=== PATIENT | male | born 1960 | race Caucasian/White ===

== ENCOUNTER 2020-01-18 18:35 | Emergency (ER) | payer OTHER, BC ==
[2020-01-18 19:04] VITALS: BP 139/85; PULSE 78
[2020-01-18] MEDS ORDERED: Sodium Chloride 0.9% 10 ML Syringe FLUSH PRN (19:15)
[2020-01-18] MEDS ORDERED: Ketorolac 60 MG/2 ML SDV IM ONE (19:41)
--- NOTE | 2020-01-18 19:56 | EDM.PDOC ---
ED HPI GENERAL MEDICAL PROBLEM - General Chief Complaint: Chest Pain Stated Complaint: CHEST PAIN Time Seen by Provider: 01/18/20 19:15 Source of Information: Reports: Patient History Limitations: Reports: No Limitations - History of Present Illness INITIAL COMMENTS - FREE TEXT/NARRATIVE: was at work when he was lifting a plastic when he felt sudden onset of pain in the right side of the chest in the intercostal region , no radiation , it initially stopped but then it re-occured and this time pain was more severe. 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 01/18/20 [Rx] Past Medical History HEENT History: Reports: Other (See Below) Other HEENT History: hx tinnitis Respiratory History: Reports: Asthma Musculoskeletal History: Reports: Fracture Other Musculoskeletal History: hx fx toes, fingers, bilat clavicles, bilat shou lder blades, several ribs Endocrine/Metabolic History: Reports: Diabetes, Type II, Obesity/BMI 30+ - Infectious Disease History Infectious Disease History: Reports: Measles, Mumps - Past Surgical History Neurological Surgical History: Reports: C-Spine, Other (See Below) Other Neurological Surgeries/Procedures: cervical fusion Musculoskeletal Surgical History: Reports: Arthroscopic Knee, Shoulder Surgery, Other (See Below) Other Musculoskeletal Surgeries/Procedures:: L shoulder, bilat knees scoped, Social & Family History - Family History Family Medical History: Noncontributory - Tobacco Use Tobacco Use Status *Q: Current Some Day Tobacco User Years of Tobacco use: 42 Packs/Tins Daily: 0.1 - Caffeine Use Caffeine Use: Reports: Soda - Recreational Drug Use Recreational Drug Use: No ED ROS GENERAL - Review of Systems Review Of Systems: See Below Constitutional: Reports: No Symptoms. Denies: Fever, Chills, Malaise, Weakness, Decreased Appetite HEENT: Reports: No Symptoms Respiratory: Reports: No Symptoms Cardiovascular: Reports: Chest Pain. Denies: Claudication, Dyspnea on Exertion, Orthopnea, PND Endocrine: Reports: No Symptoms GI/Abdominal: Reports: No Symptoms : Reports: No Symptoms Musculoskeletal: Reports: No Symptoms Skin: Reports: No Symptoms Neurological: Reports: No Symptoms Psychiatric: Reports: No Symptoms Hematologic/Lymphatic: Reports: No Symptoms Immunologic: Reports: No Symptoms ED EXAM, GENERAL - Physical Exam Exam: See Below Exam Limited By: No Limitations General Appearance: Alert, WD/WN, No Apparent Distress Eye Exam: Bilateral Eye: EOMI Ears: Normal External Exam, Normal Canal, Hearing Grossly Normal Nose: Normal Inspection, Normal Mucosa Throat/Mouth: Normal Inspection Head: Atraumatic, Normocephalic Neck: Supple, Non-Tender Respiratory/Chest: No Respiratory Distress, Lungs Clear, Other (reproducible chest wall pain noted in the 4th intercostal space in the prasternal area ) Cardiovascular: Regular Rate, Rhythm, No Edema, No JVD, No Murmur Peripheral Pulses: 4+: Carotid (L) GI/Abdominal: Soft, Non-Tender (Male) Exam: Normal Inspection, Normal Prostate Back Exam: Normal Inspection, Full Range of Motion. No: CVA Tenderness (R) Extremities: Normal Inspection, Normal Range of Motion Neurological: Alert, Oriented, CN II-XII Intact Psychiatric: Normal Affect Skin Exam: Warm, Dry, Intact Lymphatic: No Adenopathy #1 Interpretation Rhythm: NSR [place]: Normal P-Wave: Present QRS: Normal ST-T: Normal Course - Vital Signs Last Recorded V/S: Last Vital Signs Temp 36.6 C 01/18/20 19:24 Pulse 78 01/18/20 18:50 Resp 18 01/18/20 18:50 BP 139/85 01/18/20 18:50 Pulse Ox 99 01/18/20 18:50 - Orders/Labs/Meds Orders: Active Orders 24 hr Category Date Time Status EKG Documentation Completion [RC] ASDIRECTED Care 01/18/20 18:53 Active Warming Measures [Cooling Warming Measures] [RC] Care 01/18/20 19:42 Active ASDIRECTED Chest 1V Frontal [CR] Stat Exams 01/18/20 18:52 Taken Sodium Chloride 0.9% [Saline Flush] Med 01/18/20 19:15 Active 10 ml FLUSH ASDIRECTED PRN Peripheral IV Insertion Adult [OM.PC] Routine Oth 01/18/20 19:15 Ordered EKG 12 Lead [EK] Routine Ther 01/18/20 18:52 Ordered Medication Orders Sodium Chloride (Saline Flush) 10 ml FLUSH ASDIRECTED PRN PRN Reason: Keep Vein Open Last Admin: 01/18/20 18:55 Dose: 10 ml Documented by: EAMON Labs: Laboratory Tests 01/18/20 01/18/20 01/18/20 Range/Units 18:42 18:42 18:42 WBC 8.3 (4.5-12.0) X10-3/uL RBC 5.17 (4.30-5.75) x10(6)uL Hgb 14.9 (13.5-17.8) g/dL Hct 43.5 (30.0-51.3) % MCV 84.2 (80-96) fL MCH 28.7 (27.7-33.6) pg MCHC 34.1 (32.2-35.4) g/dL RDW 12.4 (11.5-15.5) % Plt Count 251 (125-369) X10(3)uL MPV 8.2 (7.4-10.4) fL Neut % (Auto) 63.9 (46-82) % Lymph % (Auto) 27.1 (13-37) % Dunn % (Auto) 6.3 (4-12) % Eos % (Auto) 2 (1.0-5.0) % Baso % (Auto) 1 (0-2) % Neut # (Auto) 5.4 (1.6-8.3) # Lymph # (Auto) 2.2 (0.6-5.0) # Dunn # (Auto) 0.5 (0.0-1.3) # Eos # (Auto) 0.1 (0.0-0.8) # Baso # (Auto) 0.1 (0.0-0.2) # D-Dimer, Quantitative 0.41 (0.0-0.59) mg/LFEU Sodium 139 (135-145) mmol/L Potassium 3.9 (3.5-5.3) mmol/L Chloride 103 (100-110) mmol/L Carbon Dioxide 28 (21-32) mmol/L BUN 16 (7-18) mg/dL Creatinine 1.0 (0.70-1.30) mg/dL Est Cr Clr Drug Dosing 55.56 mL/min Estimated GFR (MDRD) > 60 (>60) BUN/Creatinine Ratio 16.0 (9-20) Glucose 133 H (80-116) mg/dL Calcium 8.6 (8.6-10.2) mg/dL Total Bilirubin 0.5 (0.1-1.3) mg/dL AST 21 (5-25) IU/L ALT 33 (12-36) U/L Alkaline Phosphatase 99 (56-112) IU/L Troponin I (4.0-60.3) pg/mL Total Protein 7.2 (6.0-8.0) g/dL Albumin 3.7 (3.2-4.6) g/dL Globulin 3.5 g/dL Albumin/Globulin Ratio 1.1 01/17/ Range/Units 18:42 WBC (4.5-12.0) X10-3/uL RBC (4.30-5.75) x10(6)uL Hgb (13.5-17.8) g/dL Hct (30.0-51.3) % MCV (80-96) fL MCH (27.7-33.6) pg MCHC (32.2-35.4) g/dL RDW (11.5-15.5) % Plt Count (125-369) X10(3)uL MPV (7.4-10.4) fL Neut % (Auto) (46-82) % Lymph % (Auto) (13-37) % Dunn % (Auto) (4-12) % Eos % (Auto) (1.0-5.0) % Baso % (Auto) (0-2) % Neut # (Auto) (1.6-8.3) # Lymph # (Auto) (0.6-5.0) # Dunn # (Auto) (0.0-1.3) # Eos # (Auto) (0.0-0.8) # Baso # (Auto) (0.0-0.2) # D-Dimer, Quantitative (0.0-0.59) mg/LFEU Sodium (135-145) mmol/L Potassium (3.5-5.3) mmol/L Chloride (100-110) mmol/L Carbon Dioxide (21-32) mmol/L BUN (7-18) mg/dL Creatinine (0.70-1.30) mg/dL Est Cr Clr Drug Dosing mL/min Estimated GFR (MDRD) (>60) BUN/Creatinine Ratio (9-20) Glucose (80-116) mg/dL Calcium (8.6-10.2) mg/dL Total Bilirubin (0.1-1.3) mg/dL AST (5-25) IU/L ALT (12-36) U/L Alkaline Phosphatase (56-112) IU/L Troponin I 4.4 (4.0-60.3) pg/mL Total Protein (6.0-8.0) g/dL Albumin (3.2-4.6) g/dL Globulin g/dL Albumin/Globulin Ratio Meds: Medications Generic Name Dose Route Start Last Admin Trade Name Freq PRN Reason Stop Dose Admin Sodium Chloride 10 ml 01/18/20 19:15 01/18/20 18:55 Saline Flush FLUSH 10 ml ASDIRECTED PRN Administration Keep Vein Open Discontinued Medications Generic Name Dose Route Start Last Admin Trade Name Freq PRN Reason Stop Dose Admin Ketorolac Tromethamine 60 mg 01/18/20 19:41 Toradol IM 01/18/20 19:42 ONETIME ONE Departure - Departure Time of Disposition: 20:10 Disposition: Home, Self-Care 01 Condition: Good Clinical Impression: Costochondral joint sprain, Costochondral chest pain Instructions: Nonspecific Chest Pain, Adult, [id number]-[id number], Chest Wall Pain, [id number] Referrals: PCP,None [Primary Care Provider] - Forms: ED Department Discharge, ED Return to Work/School Form Additional Instructions: 1) Warm compress to the affected area 3 times daily for 15-20 mins 2) OK to use aspirin as needed 3) Call ER wth any concerns Sepsis Event Note (ED) - Evaluation Sepsis Screening Result: No Definite Risk - Focused Exam Vital Signs: Vital Signs Temp Temp Pulse Resp BP Pulse Ox 01/18/20 19:24 36.6 C 01/18/20 18:50 36.2 C 78 18 139/85 99 - My Orders Last 24 Hours: My Active Orders 01/18/20 19:15 Sodium Chloride 0.9% [Saline Flush] 10 ml FLUSH ASDIRECTED PRN Peripheral IV Insertion Adult [OM.PC] Routine 01/18/20 19:42 Warming Measures [Cooling Warming Measures] [RC] ASDIRECTED - Assessment/Plan Last 24 Hours: My Active Orders 01/18/20 19:15 Sodium Chloride 0.9% [Saline Flush] 10 ml FLUSH ASDIRECTED PRN Peripheral IV Insertion Adult [OM.PC] Routine 01/18/20 19:42 Warming Measures [Cooling Warming Measures] [RC] ASDIRECTED
== END 2020-01-18 20:30 | disposition home or self-care (01) ==
LOC: FB.ED 18:35
DX: S23.41XA Sprain of ribs, initial encounter (principal); F17.210 Nicotine dependence, cigarettes, uncomplicated; J45.909 Unspecified asthma, uncomplicated; E11.9 Type 2 diabetes mellitus without complications; E66.9 Obesity, unspecified; Z68.42 Body mass index [BMI] 45.0-49.9, adult; Z88.8 Allergy status to other drugs, medicaments and biological substances; X50.9XXA Other and unspecified overexertion or strenuous movements or postures, initial encounter
CPT/HCPCS: 36415; 71045; 80053; 84484; 85025; 85379; 93005; 96372; 99285; J1885; 93010; 99283

== ENCOUNTER 2020-09-27 21:28 | Emergency (ER) | payer OTHER, BC ==
[2020-09-27 21:40] VITALS: BP 153/92; PULSE 0
--- NOTE | 2020-09-27 22:06 | EDM.PDOC ---
ED HPI GENERAL MEDICAL PROBLEM - General Chief Complaint: Upper Extremity Injury/Pain Stated Complaint: INJURY TO LEFT WRIST AT WORK Time Seen by Provider: 09/27/20 21:40 Source of Information: Reports: Patient History Limitations: Reports: No Limitations - History of Present Illness INITIAL COMMENTS - FREE TEXT/NARRATIVE: Patient presented to the ED because of left wrist pain. He heard a pop on his left wrist after pulling on something while at work. He c/o 6/10 pain and tingling of the fingers Treatments VISE HAND: Reports: Cold Therapy - Related Data Allergies Allergy/AdvReac Type Severity Reaction Status Date / Time metformin Allergy Nausea Verified 09/27/20 21:40 Home Meds: Home Meds Albuterol [Proventil HFA] 2 puff INH QID PRN 04/15/16 [History] Alogliptin Benzoate [Alogliptin] 25 mg PO DAILY 09/27/20 [History] Ibuprofen 800 mg PO Q8H PRN #30 tablet 09/27/20 [Rx] Past Medical History HEENT History: Reports: Other (See Below) Other HEENT History: hx tinnitis Respiratory History: Reports: Asthma Musculoskeletal History: Reports: Fracture Other Musculoskeletal History: hx fx toes, fingers, bilat clavicles, bilat shoulder blades, several ribs Endocrine/Metabolic History: Reports: Diabetes, Type II, Obesity/BMI 30+ - Infectious Disease History Infectious Disease History: Reports: Measles, Mumps - Past Surgical History Neurological Surgical History: Reports: C-Spine, Other (See Below) Other Neurological Surgeries/Procedures: cervical fusion Musculoskeletal Surgical History: Reports: Arthroscopic Knee, Shoulder Surgery, Other (See Below) Other Musculoskeletal Surgeries/Procedures:: L shoulder, bilat knees scoped, Social & Family History - Family History Family Medical History: No Pertinent Family History - Tobacco Use Tobacco Use Status *Q: Current Every Day Tobacco User Years of Tobacco use: 45 Packs/Tins Daily: 0.5 - Caffeine Use Caffeine Use: Reports: Soda - Recreational Drug Use Recreational Drug Use: No Review of Systems - Review of Systems Review Of Systems: See Below Constitutional: Reports: No Symptoms Eyes: Reports: No Symptoms Ears: Reports: No Symptoms Nose: Reports: No Symptoms Mouth/Throat: Reports: No Symptoms Respiratory: Reports: No Symptoms Cardiovascular: Reports: No Symptoms GI/Abdominal: Reports: No Symptoms Genitourinary: Reports: No Symptoms Musculoskeletal: Reports: No Symptoms Skin: Reports: No Symptoms Neurological: Reports: No Symptoms ED EXAM, GENERAL - Physical Exam Exam: See Below Exam Limited By: No Limitations General Appearance: Alert, No Apparent Distress Ears: Normal External Exam, Normal Canal Nose: Normal Inspection, Normal Mucosa, No Blood Throat/Mouth: Normal Inspection, Normal Lips, Normal Teeth Head: Atraumatic, Normocephalic Neck: Normal Inspection, Supple, Non-Tender, Full Range of Motion Respiratory/Chest: No Respiratory Distress, Lungs Clear, Normal Breath Sounds, No Accessory Muscle Use, Chest Non-Tender Cardiovascular: Normal Peripheral Pulses, Regular Rate, Rhythm, No Edema, No Gallop, No JVD, No Murmur, No Rub GI/Abdominal: Normal Bowel Sounds, Soft, Non-Tender, No Organomegaly, No Distention Back Exam: Normal Inspection, Full Range of Motion Extremities: Normal Inspection, Limited Range of Motion, Other (tenderness left wrist) Neurological: Alert, Oriented, CN II-XII Intact Course - Vital Signs Text/Narrative:: xray left wrist-see result ice pack refused pain meds Last Recorded V/S: Last Vital Signs Temp 36.6 C 09/27/20 21:35 Pulse 0 L 09/27/20 21:35 Resp 16 09/27/20 21:35 BP 153/92 H 09/27/20 21:35 Pulse Ox 97 09/27/20 21:35 - Orders/Labs/Meds Orders: Active Orders 24 hr Category Date Time Status Wrist Comp Min 3V Lt [CR] Stat Exams 09/27/20 21:49 Taken Departure - Departure Time of Disposition: 22:30 Disposition: Home, Self-Care 01 Condition: Good Clinical Impression: Left wrist sprain - Discharge Information Prescriptions: Ibuprofen 800 mg PO Q8H PRN #30 tablet PRN Reason: Pain Instructions: Wrist Sprain, Adult Forms: ED Department Discharge Additional Instructions: Please read discharge instructions on wrist sprain Apply ice,elevate Take ibuprofen 800 mg with tylenol 1000 mg every 8 hours as needed for pain Follow up as needed Sepsis Event Note (ED) - Evaluation Sepsis Screening Result: No Definite Risk - My Orders Last 24 Hours: My Active Orders 09/27/20 21:49 Wrist Comp Min 3V Lt [CR] Stat - Assessment/Plan Last 24 Hours: My Active Orders 09/27/20 21:49 Wrist Comp Min 3V Lt [CR] Stat
--- NOTE | 2020-09-28 12:09 | CR ---
INDICATION: Left wrist injury. Pain in wrist at work, digit 1 through 4. LEFT WRIST: Three views of the left wrist were obtained 09/28/20 - no comparisons. The volar fat pad is slightly deviated raising question of a minimal wrist joint effusion. No other bone or joint abnormality was suggested. If occult bony abnormality is suspected clinically, additional examination such as nuclear bone imaging or MRI, may be helpful. MTDD
== END 2020-09-27 22:35 | disposition home or self-care (01) ==
LOC: FB.ED 21:28
DX: S63.502A Unspecified sprain of left wrist, initial encounter (principal); E11.9 Type 2 diabetes mellitus without complications; E66.9 Obesity, unspecified; Z88.8 Allergy status to other drugs, medicaments and biological substances; Z72.0 Tobacco use; Z68.32 Body mass index [BMI] 32.0-32.9, adult; X50.9XXA Other and unspecified overexertion or strenuous movements or postures, initial encounter; Y99.0 Civilian activity done for income or pay
CPT/HCPCS: 73110-LT; 99000; 99283-25

== ENCOUNTER 2020-10-10 14:04 | Emergency (ER) | payer BC, OTHER ==
--- NOTE | 2020-10-10 14:59 | EDM.PDOC ---
ED HPI GENERAL MEDICAL PROBLEM - General Chief Complaint: Diabetic Complaint Stated Complaint: DIZZY Time Seen by Provider: 10/10/20 14:57 Source of Information: Reports: Patient History Limitations: Reports: No Limitations - History of Present Illness INITIAL COMMENTS - FREE TEXT/NARRATIVE: Scott complaints of high blood sugars. He is out of his oral hypoglycemic [facility]. He complains of mild dizziness. - Related Data Allergies Allergy/AdvReac Type Severity Reaction Status Date / Time metformin Allergy Nausea Verified 10/10/20 14:21 Home Meds: Home Meds Albuterol [Proventil HFA] 2 puff INH QID PRN 04/15/16 [History] Alogliptin Benzoate [Alogliptin] 25 mg PO DAILY 09/27/20 [History] Ibuprofen 800 mg PO Q8H PRN #30 tablet 09/27/20 [Rx] Alogliptin Benzoate [Alogliptin] 25 mg PO ACBREAKFAST #30 tablet 10/10/20 [Rx] Past Medical History HEENT History: Reports: Other (See Below) Other HEENT History: hx tinnitis Respiratory History: Reports: Asthma Musculoskeletal History: Reports: Fracture Other Musculoskeletal History: hx fx toes, fingers, bilat clavicles, bilat shoulder blades, several ribs Endocrine/Metabolic History: Reports: Diabetes, Type II, Obesity/BMI 30+ - Infectious Disease History Infectious Disease History: Reports: Measles, Mumps - Past Surgical History Neurological Surgical History: Reports: C-Spine, Other (See Below) Other Neurological Surgeries/Procedures: cervical fusion Musculoskeletal Surgical History: Reports: Arthroscopic Knee, Shoulder Surgery, Other (See Below) Other Musculoskeletal Surgeries/Procedures:: L shoulder, bilat knees scoped, Social & Family History - Family History Family Medical History: No Pertinent Family History - Caffeine Use Caffeine Use: Reports: Soda ED ROS GENERAL - Review of Systems Review Of Systems: Comprehensive ROS is negative, except as noted in HPI. ED EXAM GENERAL NO PERIP PULSE - Physical Exam Exam: See Below Exam Limited By: No Limitations General Appearance: Alert Neck: Normal Inspection Respiratory/Chest: No Respiratory Distress, Rales, Rhonchi Course - Vital Signs Last Recorded V/S: Last Vital Signs Temp 99.3 F 10/10/20 14:22 Pulse 92 10/10/20 14:22 Resp 18 07/14/21 14:22 BP 137/78 10/10/20 14:22 Pulse Ox 97 10/10/20 14:22 - Orders/Labs/Meds Orders: Active Orders 24 hr Category Date Time Status CBC WITH MANUAL DIFF [HEME] Stat Lab 10/10/20 14:40 Results Labs: Laboratory Tests 10/10/20 10/10/20 Range/Units 14:40 14:40 WBC 7.8 (3.2-10.1) x10-3/uL RBC 4.78 (3.90-5.90) x10(6)uL Hgb 14.0 (12.9-17.7) g/dL Hct 41.4 (38.3-50.1) % MCV 86.7 (80.8-98.7) fL MCH 29.3 (27.0-33.3) pg MCHC 33.8 (28.7-35.3) g/dL RDW 13.2 (12.4-15.0) % Plt Count 216 (117-477) x10(3)uL MPV 9.2 (6.7-11.0) fL Sodium 140 (135-145) mmol/L Potassium 3.7 (3.5-5.3) mmol/L Chloride 103 (100-110) mmol/L Carbon Dioxide 26 (21-32) mmol/L BUN 14 (7-18) mg/dL Creatinine 1.0 (0.70-1.30) mg/dL Est Cr Clr Drug Dosing 70.00 mL/min Estimated GFR (MDRD) > 60 (>60) BUN/Creatinine Ratio 14.0 (9-20) Glucose 292 H D (80-116) mg/dL Calcium 8.3 L (8.6-10.2) mg/dL Total Bilirubin 0.4 (0.1-1.3) mg/dL AST 16 D (5-25) IU/L ALT 32 (12-36) U/L Alkaline Phosphatase 113 H (56-112) IU/L Total Protein 7.0 (6.0-8.0) g/dL Albumin 3.5 (3.2-4.6) g/dL Globulin 3.5 g/dL Albumin/Globulin Ratio 1.0 Departure - Departure Time of Disposition: 15:23 Disposition: Home, Self-Care 01 Clinical Impression: Hyperglycemia - Discharge Information Prescriptions: Alogliptin Benzoate [Alogliptin] 25 mg PO ACBREAKFAST #30 tablet Instructions: Hyperglycemia, [id number] Referrals: PCP,None [Primary Care Provider] - (1 week) Forms: ED Department Discharge Sepsis Event Note (ED) - Evaluation Sepsis Screening Result: No Definite Risk - Focused Exam Vital Signs: Vital Signs Temp Pulse Resp BP Pulse Ox 10/10/20 14:22 99.3 F 92 18 137/78 97 - Problem List & Annotations (1) Diabetes mellitus SNOMED Code(s): 06562058 Code(s): E11.9 - TYPE 2 DIABETES MELLITUS WITHOUT COMPLICATIONS Status: Acute Current Visit: Yes Qualifiers: Diabetes mellitus type: type 2 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 Refill given.Follow up with PCP
[2020-10-10 18:55] VITALS: BP 134/71; PULSE 82
== END 2020-10-10 15:40 | disposition home or self-care (01) ==
LOC: FB.ED 14:04
DX: E11.65 Type 2 diabetes mellitus with hyperglycemia (principal); E66.9 Obesity, unspecified; Z68.33 Body mass index [BMI] 33.0-33.9, adult
CPT/HCPCS: 36415; 80053; 85025; 99284

== ENCOUNTER 2020-11-05 13:43 | Emergency (ER) | payer BC ==
[2020-11-05] MEDS ORDERED: Ketorolac 30 MG/ML SDV IM STA (14:10)
[2020-11-05 14:46] VITALS: BP 192/99; PULSE 95
--- NOTE | 2020-11-05 14:54 | EDM.PDOC ---
ED HPI GENERAL MEDICAL PROBLEM - General Chief Complaint: Chest Pain Stated Complaint: CHEST PAIN Time Seen by Provider: 11/05/20 13:50 Source of Information: Reports: Patient History Limitations: Reports: No Limitations - History of Present Illness INITIAL COMMENTS - FREE TEXT/NARRATIVE: Patient is a 60 YO WM who presented to the ED because of a 5 day history of pleuritic chest on on the left. The pain is sharp, 8/10, worse with breathing and movements. He has a history of Asthma but still smokes 1/2 PPD. There is no fever, chills, cough and cold symptoms. left chest pain Pain Score (Numeric/FACES): 10 - Related Data Allergies Allergy/AdvReac Type Severity Reaction Status Date / Time metformin Allergy Nausea Verified 10/10/20 14:21 contrast dye Allergy Other Uncoded 11/05/20 15:06 Home Meds: Home Meds Albuterol [Proventil HFA] 2 puff INH QID PRN 04/15/16 [History] Alogliptin Benzoate [Alogliptin] 25 mg PO DAILY 09/27/20 [History] Ibuprofen 800 mg PO Q8H PRN #30 tablet 09/27/20 [Rx] Alogliptin Benzoate [Alogliptin] 25 mg PO ACBREAKFAST #30 tablet 10/10/20 [Rx] Naproxen 500 mg PO BID #15 tablet 11/05/20 [Rx] Past Medical History HEENT History: Reports: Other (See Below) Other HEENT History: hx tinnitis Respiratory History: Reports: Asthma Musculoskeletal History: Reports: Fracture Other Musculoskeletal History: hx fx toes, fingers, bilat clavicles, bilat shoulder blades, several ribs Endocrine/Metabolic History: Reports: Diabetes, Type II, Obesity/BMI 30+ - Infectious Disease History Infectious Disease History: Reports: Measles, Mumps - Past Surgical History Neurological Surgical History: Reports: C-Spine, Other (See Below) Other Neurological Surgeries/Procedures: cervical fusion Musculoskeletal Surgical History: Reports: Arthroscopic Knee, Shoulder Surgery, Other (See Below) Other Musculoskeletal Surgeries/Procedures:: L shoulder, bilat knees scoped, Social & Family History - Family History Family Medical History: No Pertinent Family History - Caffeine Use Caffeine Use: Reports: None ED ROS GENERAL - Review of Systems Review Of Systems: See Below Constitutional: Reports: No Symptoms HEENT: Reports: No Symptoms Respiratory: Reports: No Symptoms Cardiovascular: Reports: Chest Pain Endocrine: Reports: No Symptoms GI/Abdominal: Reports: No Symptoms : Reports: No Symptoms Musculoskeletal: Reports: No Symptoms Skin: Reports: No Symptoms Neurological: Reports: No Symptoms Psychiatric: Reports: No Symptoms ED EXAM, GENERAL - Physical Exam Exam: See Below Exam Limited By: No Limitations General Appearance: Alert, No Apparent Distress Eye Exam: Bilateral Eye: PERRL Ears: Normal External Exam, Normal Canal Nose: Normal Inspection, Normal Mucosa, No Blood Throat/Mouth: Normal Inspection, Normal Lips, Normal Teeth Head: Atraumatic, Normocephalic Neck: Normal Inspection, Supple, Non-Tender, Full Range of Motion Respiratory/Chest: No Respiratory Distress, Lungs Clear, Normal Breath Sounds, No Accessory Muscle Use, Other (chest wall tenderness-left) Cardiovascular: Normal Peripheral Pulses, Regular Rate, Rhythm, No Edema, No Gallop, No JVD, No Murmur, No Rub GI/Abdominal: Normal Bowel Sounds, Soft, Non-Tender, No Organomegaly, No Distention, No Abnormal Bruit Back Exam: Normal Inspection, Full Range of Motion Extremities: Normal Inspection, Normal Range of Motion, Non-Tender Neurological: Alert, Oriented, CN II-XII Intact, Normal Cognition, Normal Gait #1 Interpretation EKG Date: 11/05/20 Time: 13:44 Rhythm: NSR Rate (Beats/Min): 94 [place]: Normal P-Wave: Present QRS: Normal ST-T: Normal QT: Normal HI/PQ Interval: 141 Comparison: No Change EKG Interpretation Comments: NSR Course - Vital Signs Text/Narrative:: Lab/EKG/CXR result was reviewed and discussed with patient Toradol 60 mg IM x1 Last Recorded V/S: Last Vital Signs Temp 36.8 C 11/05/20 13:45 Pulse 95 11/05/20 13:45 Resp 18 11/05/20 13:45 BP 192/99 H 11/05/20 13:45 Pulse Ox 97 11/05/20 13:45 - Orders/Labs/Meds Labs: Laboratory Tests 11/05/20 11/05/20 11/05/20 Range/Units 14:20 14:20 14:20 WBC 6.5 (3.2-10.1) x10-3/uL RBC 4.93 (3.90-5.90) x10(6)uL Hgb 14.1 (12.9-17.7) g/dL Hct 41.6 (38.3-50.1) % MCV 84.3 (80.8-98.7) fL MCH 28.6 (27.0-33.3) pg MCHC 33.9 (28.7-35.3) g/dL RDW 12.7 (12.4-15.0) % Plt Count 207 (117-477) x10(3)uL MPV 8.7 (6.7-11.0) fL Neut % (Auto) 71.8 (40.3-71.8) % Lymph % (Auto) 20.7 (15.8-45.3) % [place] % (Auto) 4.9 L (5.5-15.2) % Eos % (Auto) 1.4 (0.1-6.8) % Baso % (Auto) 1.2 (0.3-3.8) % Neut # (Auto) 4.6 (1.7-6.9) x10-3/uL Lymph # (Auto) 1.3 (0.5-4.5) x10-3/uL [place] # (Auto) 0.3 (0.0-1.2) x10-3/uL Eos # (Auto) 0.1 (0.0-0.6) x10-3/uL Baso # (Auto) 0.1 (0.0-0.3) x10-3/uL Sodium 140 (135-145) mmol/L Potassium 3.6 (3.5-5.3) mmol/L Chloride 105 (100-110) mmol/L Carbon Dioxide 26 (21-32) mmol/L BUN 9 (7-18) mg/dL Creatinine 1.1 (0.70-1.30) mg/dL Est Cr Clr Drug Dosing TNP Estimated GFR (MDRD) > 60 (>60) BUN/Creatinine Ratio 8.2 L (9-20) Glucose 247 H (80-116) mg/dL Calcium 8.4 L (8.6-10.2) mg/dL Total Bilirubin 0.4 (0.1-1.3) mg/dL AST 14 D (5-25) IU/L ALT 30 (12-36) U/L Alkaline Phosphatase 101 (56-112) IU/L Troponin I < 4.0 L (4.0-60.3) pg/mL Total Protein 6.9 (6.0-8.0) g/dL Albumin 3.5 (3.2-4.6) g/dL Globulin 3.4 g/dL Albumin/Globulin Ratio 1.0 Meds: Medications Discontinued Medications Generic Name Dose Route Start Last Admin Trade Name Lauro PRN Reason Stop Dose Admin Ketorolac Tromethamine 60 mg 11/05/20 14:10 11/05/20 14:28 Ketorolac 30 Mg/Ml Sdv IM 11/05/20 14:11 60 mg NOW STA Administration Departure - Departure Time of Disposition: 15:00 Disposition: Home, Self-Care 01 Condition: Good Clinical Impression: Pleurisy, Chest pain Prescriptions: Naproxen 500 mg PO BID #15 tablet Instructions: Nonspecific Chest Pain, Adult, Pleurisy, [id number] Referrals: PCP,None [Primary Care Provider] - Forms: ED Department Discharge Additional Instructions: Please read discharge instructions on chest pain and pleurisy [place] to smoke less cigarettes while being treated Naproxen 500 mg twice daily for 7 days Follow up as needed Sepsis Event Note (ED) - Evaluation Sepsis Screening Result: No Definite Risk
--- NOTE | 2020-11-05 16:34 | CR ---
CHEST ONE VIEW INDICATION: Chest pain, history of asthma. Portable AP upright view of the chest 11/05/20 was compared with 01/18/20 and 12/10/17. The heart remains normal in size and shape. Mediastinum was unremarkable. Moderate degenerative changes are noted in the thoracic spine. Overlying EKG leads are noted. Peaking of the minor fissure was again noted, likely fibrotic in nature. A definite active infiltrate or effusion was not identified. Postsurgical changes noted at the base of the cervical spine. IMPRESSION: No acute process. MTDD
== END 2020-11-05 15:05 | disposition home or self-care (01) ==
LOC: FB.ED 13:43
DX: R09.1 Pleurisy (principal); E11.9 Type 2 diabetes mellitus without complications; E66.9 Obesity, unspecified; Z88.8 Allergy status to other drugs, medicaments and biological substances; Z91.041 Radiographic dye allergy status; Z68.31 Body mass index [BMI] 31.0-31.9, adult; Z79.84 Long term (current) use of oral hypoglycemic drugs; Z72.0 Tobacco use
CPT/HCPCS: 36415; 71045; 80053; 84484; 85025; 93005; 96372; 99284; J1885

== ENCOUNTER 2020-12-25 14:22 | Emergency (ER) | payer BC ==
[2020-12-25] MEDS ORDERED: Ketorolac 30 MG/ML SDV IM STA (14:32)
--- NOTE | 2020-12-25 15:38 | EDM.PDOC ---
ED HPI GENERAL MEDICAL PROBLEM - General Chief Complaint: Chest Pain Stated Complaint: CHEST PAIN Time Seen by Provider: 12/25/20 14:25 Source of Information: Reports: Patient History Limitations: Reports: No Limitations - History of Present Illness INITIAL COMMENTS - FREE TEXT/NARRATIVE: Patient presented to the ED because of chest pain,sternal area, sharp and pleuritic type which started at 1335. there is no N/V/D. He has a cough not more than usual since he has asthma. No dyspnea, fever, chills. Chest Pain Score (Numeric/FACES): 5 - Related Data Allergies Allergy/AdvReac Type Severity Reaction Status Date / Time metformin Allergy Nausea Verified 12/25/20 21:08 contrast dye Allergy Other Uncoded 12/25/20 21:08 Home Meds: Home Meds Albuterol [Proventil HFA] 2 puff INH QID PRN 04/15/16 [History] Alogliptin Benzoate [Alogliptin] 25 mg PO DAILY 09/27/20 [History] Ibuprofen 800 mg PO Q8H PRN #30 tablet 09/27/20 [Rx] Alogliptin Benzoate [Alogliptin] 25 mg PO ACBREAKFAST #30 tablet 10/10/20 [Rx] Naproxen 500 mg PO BID #15 tablet 11/05/20 [Rx] Naproxen 500 mg PO BID #15 tablet. 12/25/20 [Rx] Past Medical History HEENT History: Reports: Other (See Below) Other HEENT History: hx tinnitis Respiratory History: Reports: Asthma Musculoskeletal History: Reports: Fracture Other Musculoskeletal History: hx fx toes, fingers, bilat clavicles, bilat shoulder blades, several ribs Endocrine/Metabolic History: Reports: Diabetes, Type II, Obesity/BMI 30+ - Infectious Disease History Infectious Disease History: Reports: Measles, Mumps - Past Surgical History Neurological Surgical History: Reports: C-Spine, Other (See Below) Other Neurological Surgeries/Procedures: cervical fusion Musculoskeletal Surgical History: Reports: Arthroscopic Knee, Shoulder Surgery, Other (See Below) Other Musculoskeletal Surgeries/Procedures:: L shoulder, bilat knees scoped, Social & Family History - Family History Family Medical History: No Pertinent Family History - Caffeine Use Caffeine Use: Reports: Soda ED ROS GENERAL - Review of Systems Review Of Systems: See Below Constitutional: Reports: No Symptoms HEENT: Reports: No Symptoms Respiratory: Reports: Cough Cardiovascular: Reports: Chest Pain Endocrine: Reports: No Symptoms GI/Abdominal: Reports: No Symptoms : Reports: No Symptoms Musculoskeletal: Reports: No Symptoms Skin: Reports: No Symptoms Neurological: Reports: No Symptoms Psychiatric: Reports: No Symptoms, Other ED EXAM, GENERAL - Physical Exam Exam: See Below Exam Limited By: No Limitations General Appearance: Alert, No Apparent Distress Eye Exam: Bilateral Eye: PERRL Ears: Normal External Exam, Normal Canal Nose: Normal Inspection, Normal Mucosa, No Blood Throat/Mouth: Normal Inspection, Normal Lips, Normal Teeth, Normal Gums, Normal Oropharynx Head: Atraumatic, Normocephalic Neck: Normal Inspection, Supple, Non-Tender, Full Range of Motion Respiratory/Chest: No Respiratory Distress, Lungs Clear, Normal Breath Sounds, No Accessory Muscle Use, Chest Non-Tender Cardiovascular: Normal Peripheral Pulses, No Edema, Other (chest wall tenderness) GI/Abdominal: Normal Bowel Sounds, Soft, Non-Tender, No Organomegaly Back Exam: Normal Inspection, Full Range of Motion Extremities: Normal Inspection, Normal Range of Motion, Non-Tender, No Pedal Edema, Normal Capillary Refill Neurological: Alert, Oriented, CN II-XII Intact Psychiatric: Normal Affect #1 Interpretation EKG Date: 12/25/20 Time: 14:28 Rhythm: NSR Rate (Beats/Min): 74 [place]: Normal P-Wave: Present QRS: Normal ST-T: Normal QT: Normal MT/PQ Interval: 133 Comparison: No Change EKG Interpretation Comments: Lab/EKG was reviewed and discussed with aptient Toradol 60 mg IM x1 Course - Vital Signs Text/Narrative:: Lab/EKG result was reviewed and discussed with patient Toradol 60 mg IM x1 Last Recorded V/S: Last Vital Signs Temp 36.6 C 12/25/20 14:22 Pulse 63 12/25/20 15:47 Resp 18 12/25/20 15:47 BP 132/75 12/25/20 15:47 Pulse Ox 97 12/25/20 15:47 - Orders/Labs/Meds Orders: Active Orders 24 hr Category Date Time Status EKG 12 Lead [EK] Routine Ther 12/25/20 14:32 Ordered Labs: Laboratory Tests 09/28/21 09/28/21 09/28/21 Range/Units 14:38 14:38 14:38 WBC 7.0 (3.2-10.1) x10-3/uL RBC 5.03 (3.90-5.90) x10(6)uL Hgb 14.4 (12.9-17.7) g/dL Hct 42.5 (38.3-50.1) % MCV 84.4 (80.8-98.7) fL MCH 28.7 (27.0-33.3) pg MCHC 34.0 (28.7-35.3) g/dL RDW 13.4 (12.4-15.0) % Plt Count 215 (117-477) x10(3)uL MPV 9.0 (6.7-11.0) fL Neut % (Auto) 66.0 (40.3-71.8) % Lymph % (Auto) 23.2 (15.8-45.3) % [place] % (Auto) 8.0 (5.5-15.2) % Eos % (Auto) 1.9 (0.1-6.8) % Baso % (Auto) 0.9 (0.3-3.8) % Neut # (Auto) 4.6 (1.7-6.9) x10-3/uL Lymph # (Auto) 1.6 (0.5-4.5) x10-3/uL [place] # (Auto) 0.6 (0.0-1.2) x10-3/uL Eos # (Auto) 0.1 (0.0-0.6) x10-3/uL Baso # (Auto) 0.1 (0.0-0.3) x10-3/uL Sodium 140 (135-145) mmol/L Potassium 3.5 (3.5-5.3) mmol/L Chloride 105 (100-110) mmol/L Carbon Dioxide 25 (21-32) mmol/L BUN 11 (7-18) mg/dL Creatinine 0.9 (0.70-1.30) mg/dL Est Cr Clr Drug Dosing TNP Estimated GFR (MDRD) > 60 (>60) BUN/Creatinine Ratio 12.2 (9-20) Glucose 241 H (80-116) mg/dL Calcium 8.6 (8.6-10.2) mg/dL Total Bilirubin 0.5 (0.1-1.3) mg/dL AST 12 D (5-25) IU/L ALT 31 (12-36) U/L Alkaline Phosphatase 110 (56-112) IU/L Troponin I 4.3 (4.0-60.3) pg/mL Total Protein 7.0 (6.0-8.0) g/dL Albumin 3.6 (3.2-4.6) g/dL Globulin 3.4 g/dL Albumin/Globulin Ratio 1.1 Meds: Medications Discontinued Medications Generic Name Dose Route Start Last Admin Trade Name Freq PRN Reason Stop Dose Admin Ketorolac Tromethamine 60 mg 12/25/20 14:32 12/25/20 14:42 Ketorolac 30 Mg/Ml Sdv IM 12/25/20 14:33 60 mg NOW STA Administration Departure - Departure Time of Disposition: 16:00 Disposition: Home, Self-Care 01 Condition: Good Clinical Impression: Atypical chest pain, Pleurisy Prescriptions: Naproxen 500 mg PO BID #15 tablet.dr Instructions: Nonspecific Chest Pain, Adult, [id number], Pleurisy, [id number] Referrals: Michel Lee MD [Primary Care Provider] - Forms: ED Department Discharge Additional Instructions: Please read discharge instructions on atypical chest pain and pleurisy Naproxen 500 mg twice daily for 1 week Follow up as needed - My Orders Last 24 Hours: My Active Orders 12/25/20 14:32 EKG 12 Lead [EK] Routine - Assessment/Plan Last 24 Hours: My Active Orders 12/25/20 14:32 EKG 12 Lead [EK] Routine
--- NOTE | 2020-12-25 16:02 | CR ---
CHEST ONE VIEW INDICATION: Chest pain. FINDINGS: AP upright portable view of the chest 12/25/20 was compared with 11/05/20 and 01/18/20. The heart remains normal in size. The aorta is minimally tortuous. Degenerative changes are noted in the spine. Overlying EKG leads are noted. Pulmonary markings are similar to the previous study with no active infiltrate or effusion suggested. IMPRESSION: No acute process - stable appearance of the chest. MTDD
[2020-12-25 21:10] VITALS: BP 132/75; PULSE 63
== END 2020-12-25 16:00 | disposition home or self-care (01) ==
LOC: FB.ED 14:22
DX: R07.89 Other chest pain (principal); R09.1 Pleurisy; J45.909 Unspecified asthma, uncomplicated; E11.9 Type 2 diabetes mellitus without complications; E66.9 Obesity, unspecified; Z88.8 Allergy status to other drugs, medicaments and biological substances; Z91.041 Radiographic dye allergy status; Z79.899 Other long term (current) drug therapy
CPT/HCPCS: 36415; 71045; 80053; 84484; 85025; 93005; 96372; 99284; J1885

== ENCOUNTER 2021-01-28 14:28 | Emergency (ER) | payer BC ==
--- NOTE | 2021-01-28 15:01 | EDM.PDOC ---
ED HPI GENERAL MEDICAL PROBLEM - General Stated Complaint: CHEST PAIN Time Seen by Provider: 01/28/21 15:01 Source of Information: Reports: Patient History Limitations: Reports: No Limitations - History of Present Illness INITIAL COMMENTS - FREE TEXT/NARRATIVE: pt is concerned for recurrent chest pains that he has been having for a year , today it started bothering him while watching TV 2 hrs ago , pt report some SOB with this, pain is sharp , across upper chest and non radiating , pt denies fever chills or any other associated sx or concerns, denies leg swelling or pain. pt states , his stress test was neg last year. report Hxof astma , smoking and DM. Left Chest Pain Score (Numeric/FACES): 5 - Related Data Allergies Allergy/AdvReac Type Severity Reaction Status Date / Time metformin Allergy Nausea Verified 12/25/20 21:08 contrast dye Allergy Other Uncoded 12/25/20 21:08 Home Meds: Home Meds Albuterol [Proventil HFA] 2 puff INH QID PRN 04/15/16 [History] Alogliptin Benzoate [Alogliptin] 25 mg PO DAILY 09/27/20 [History] Ibuprofen 800 mg PO Q8H PRN #30 tablet 09/27/20 [Rx] Alogliptin Benzoate [Alogliptin] 25 mg PO ACBREAKFAST #30 tablet 10/10/20 [Rx] Naproxen 500 mg PO BID #15 tablet 11/05/20 [Rx] Naproxen 500 mg PO BID #15 tablet. 12/25/20 [Rx] Past Medical History HEENT History: Reports: Other (See Below) Other HEENT History: hx tinnitis Respiratory History: Reports: Asthma Musculoskeletal History: Reports: Fracture Other Musculoskeletal History: hx fx toes, fingers, bilat clavicles, bilat shoulder blades, several ribs Endocrine/Metabolic History: Reports: Diabetes, Type II, Obesity/BMI 30+ - Infectious Disease History Infectious Disease History: Reports: Measles, Mumps - Past Surgical History Neurological Surgical History: Reports: C-Spine, Other (See Below) Other Neurological Surgeries/Procedures: cervical fusion Musculoskeletal Surgical History: Reports: Arthroscopic Knee, Shoulder Surgery, Other (See Below) Other Musculoskeletal Surgeries/Procedures:: L shoulder, bilat knees scoped, Social & Family History - Family History Family Medical History: No Pertinent Family History - Caffeine Use Caffeine Use: Reports: Soda ED ROS GENERAL - Review of Systems Review Of Systems: See Below Constitutional: Reports: No Symptoms HEENT: Reports: No Symptoms Respiratory: Reports: Shortness of Breath Cardiovascular: Reports: No Symptoms, Chest Pain. Denies: Claudication, Dyspnea on Exertion, Palpitations, PND GI/Abdominal: Reports: No Symptoms : Reports: No Symptoms Musculoskeletal: Reports: No Symptoms Skin: Reports: No Symptoms ED EXAM, GENERAL - Physical Exam Exam: See Below Exam Limited By: No Limitations General Appearance: Alert, No Apparent Distress Ears: Normal TMs Nose: Normal Inspection, Normal Mucosa Throat/Mouth: Normal Inspection, Normal Oropharynx Head: Atraumatic, Normocephalic Neck: Normal Inspection, Supple, Non-Tender Respiratory/Chest: No Respiratory Distress, Lungs Clear, Normal Breath Sounds, Other (tander at both sides of upper sternum on palpation, skin is nl. ) Cardiovascular: Normal Peripheral Pulses, Regular Rate, Rhythm GI/Abdominal: Normal Bowel Sounds, Soft Back Exam: Normal Inspection Extremities: Normal Inspection, Normal Range of Motion, Normal Capillary Refill Neurological: Alert, Oriented, CN II-XII Intact, No Motor/Sensory Deficits Skin Exam: Warm, Dry #1 Interpretation EKG Date: 01/28/21 Time: 15:00 Rhythm: NSR [place]: Normal P-Wave: Present QRS: Normal ST-T: Normal QT: Normal Course - Vital Signs Text/Narrative:: lab results were explained to pt , EKG shows NSR, trop is neg, BS elevated but stable, pt is comfortable after toradol. pt has reproducible pain on chest, a likely clinical diagnosis is costochondritis. supportive mng along with OTC antiinflammatories and f/u with PCP. Last Recorded V/S: Last Vital Signs Temp 35.9 C L 01/28/21 14:55 Pulse 82 01/28/21 14:55 Resp 16 01/28/21 14:55 BP 162/83 H 01/28/21 14:55 Pulse Ox 96 01/28/21 14:55 - Orders/Labs/Meds Orders: Active Orders 24 hr Category Date Time Status Chest 1V Frontal [CR] Stat Exams 01/28/21 15:08 Taken TROPONIN I [CHEM] Stat Lab 01/28/21 14:45 Received Labs: Laboratory Tests 01/28/21 01/28/21 Range/Units 14:45 14:45 WBC 6.9 (3.2-10.1) x10-3/uL RBC 5.13 (3.90-5.90) x10(6)uL Hgb 14.4 (12.9-17.7) g/dL Hct 43.0 (38.3-50.1) % MCV 83.8 (80.8-98.7) fL MCH 28.0 (27.0-33.3) pg MCHC 33.4 (28.7-35.3) g/dL RDW 13.3 (12.4-15.0) % Plt Count 216 (117-477) x10(3)uL MPV 8.6 (6.7-11.0) fL Neut % (Auto) 72.6 H (40.3-71.8) % Lymph % (Auto) 20.2 (15.8-45.3) % [place] % (Auto) 4.6 L (5.5-15.2) % Eos % (Auto) 1.7 (0.1-6.8) % Baso % (Auto) 0.9 (0.3-3.8) % Neut # (Auto) 5.0 (1.7-6.9) x10-3/uL Lymph # (Auto) 1.4 (0.5-4.5) x10-3/uL [place] # (Auto) 0.3 (0.0-1.2) x10-3/uL Eos # (Auto) 0.1 (0.0-0.6) x10-3/uL Baso # (Auto) 0.1 (0.0-0.3) x10-3/uL Sodium 138 (135-145) mmol/L Potassium 4.0 (3.5-5.3) mmol/L Chloride 103 (100-110) mmol/L Carbon Dioxide 26 (21-32) mmol/L BUN 12 (7-18) mg/dL Creatinine 1.1 (0.70-1.30) mg/dL Est Cr Clr Drug Dosing 65.93 mL/min Estimated GFR (MDRD) > 60 (>60) BUN/Creatinine Ratio 10.9 (9-20) Glucose 260 H (80-116) mg/dL Calcium 8.5 L (8.6-10.2) mg/dL Total Bilirubin 0.2 (0.1-1.3) mg/dL AST 12 (5-25) IU/L ALT 29 (12-36) U/L Alkaline Phosphatase 130 H (56-112) IU/L Total Protein 7.0 (6.0-8.0) g/dL Albumin 3.5 (3.2-4.6) g/dL Globulin 3.5 g/dL Albumin/Globulin Ratio 1.0 Meds: Medications Discontinued Medications Generic Name Dose Route Start Last Admin Trade Name Freq PRN Reason Stop Dose Admin Ketorolac Tromethamine 30 mg 01/28/21 15:08 01/28/21 15:11 Ketorolac 30 Mg/Ml Sdv IVPUSH 01/28/21 15:09 30 mg ONETIME ONE Administration Departure - Departure Time of Disposition: 15:33 Disposition: Home, Self-Care 01 Clinical Impression: Chest wall pain - Discharge Information Sepsis Event Note (ED) - Focused Exam Vital Signs: Vital Signs Temp Pulse Resp BP Pulse Ox 01/28/21 14:55 35.9 C L 82 16 162/83 H 96 - My Orders Last 24 Hours: My Active Orders 01/28/21 14:45 TROPONIN I [CHEM] Stat 01/28/21 15:08 Chest 1V Frontal [CR] Stat - Assessment/Plan Last 24 Hours: My Active Orders 01/28/21 14:45 TROPONIN I [CHEM] Stat 01/28/21 15:08 Chest 1V Frontal [CR] Stat
[2021-01-28 15:07] VITALS: BP 162/83; PULSE 82
[2021-01-28] MEDS ORDERED: Ketorolac 30 MG/ML SDV IVPUSH ONE (15:08)
--- NOTE | 2021-01-28 16:50 | CR ---
INDICATION: Chest pain. CHEST, ONE VIEW: AP upright portable view of the chest, 01/28/21, was compared with 12/25/20 and 11/05/20 and revealed decreased fluid at the minor fissure with pulmonary markings similar to the previous examination, without a definite active infiltrate or effusion. The heart, mediastinum and bony thorax were grossly unremarkable, except to note some degenerative changes in the thoracic spine. Overlying EKG leads are noted. IMPRESSION: No acute process. MTDD
== END 2021-01-28 16:30 | disposition home or self-care (01) ==
LOC: FB.ED 14:28
DX: R07.89 Other chest pain (principal); E11.9 Type 2 diabetes mellitus without complications; E66.9 Obesity, unspecified; Z68.31 Body mass index [BMI] 31.0-31.9, adult; Z88.8 Allergy status to other drugs, medicaments and biological substances; Z91.041 Radiographic dye allergy status
CPT/HCPCS: 36415; 71045; 80053; 84484; 85025; 96374; 99285-25; J1885

== ENCOUNTER 2022-05-12 13:05 | Emergency (ER) | payer SELFPAY ==
[2022-05-12 14:11] LABS: ESTIMATED GFR 76 mL/min (>60)
[2022-05-12 15:28] VITALS: BP 116/73; PULSE 89
== END 2022-05-12 15:17 | disposition home or self-care (01) ==
LOC: FB.ED 13:05
DX: R07.81 Pleurodynia (principal); N20.0 Calculus of kidney; J45.909 Unspecified asthma, uncomplicated; E11.9 Type 2 diabetes mellitus without complications; F17.210 Nicotine dependence, cigarettes, uncomplicated; E66.9 Obesity, unspecified; Z68.31 Body mass index [BMI] 31.0-31.9, adult; Z91.041 Radiographic dye allergy status; Z88.8 Allergy status to other drugs, medicaments and biological substances
CPT/HCPCS: 36415; 71101-RT; 74176; 80053; 81001; 82150; 83690; 84484; 85025; 85379; 93005; 99285